=== PATIENT | female | born 1960 | race Caucasian/White ===

== ENCOUNTER → 2017-08-20 | Outpatient (CLI) | payer OTHER ==
--- NOTE | ~2017-08-20 | EXE ---
[facility] [place] [email or web address] [address] STRESS ECHOCARDIOGRAM Name: CRISTIAN HERCULES Room #: REG [facility]#: [id number] Admission: 08/20/17 Attend Phys: Gamaliel Alexander, Discharge: Date of : 56 Date of Service: 08/20/17 1431 Report #: [id number] THIS REPORT FOR: //name// APPROVED REPORT Exam: Stress Echocardiogram Indication: Family history of heart disease, Hyperlipidemia Patient Location: Echo lab Stress Nurse: Heidy Flores RN Status: routine Ht: 5 ft 8 in HR: 67 bpm BP: 136/93 mmHg Medical History Medications: No cardiac medications Allergies: No known drug allergies Cardiac Risk Factors: Hyperlipidemia Pretest Chest Pain Characteristics: No chest pain Procedure The patient underwent an Exercise Stress Test using the Edis Protocol. Blood pressure, heart rate, and EKG were monitored. An Echocardiogram was performed by overhead door technician in four stages in quad fashion. At peak stress, four selected images were obtained and placed side by side with resting images for comparison. Stress Test Details Stress Test: Exercise stress testing was performed using a Edis protocol. HR Resting HR: 67 bpm Max Heart Rate (APMHR): 161 bpm Max HR Achieved: 166 bpm Target HR (85% APMHR): 136 bpm % of APMHR: 103 Recovery HR: 91 bpm HR response to stress: Normal HR response to stress BP Resting BP: 136/93 mmHg Max BP: 176/98 mmHg Recovery BP: 128/80 mmHg ECG Clinical [facility] [address] [place] [address] STRESS ECHOCARDIOGRAM Name: CRISTIAN HERCULES Room #: [facility]#: [id number] Admission: 08/20/17 Attend Phys: Gamaliel Alexander, Discharge: Date of : 56 Date of Service: 08/20/17 143 Report #: [id number] Reason for Termination: Completed protocol, Maximal effort Exercise duration: 6 min 15 sec Highest Stage Achieved: Stage 3: 3.4 mph at 14% grade. Exercise capacity: 7.7 METs Pre-Stress Echo The resting Echocardiogram showed normal left ventricular contractility with an estimated Ejection Fraction of about 55-60%. Post-Stress Echo The stress Echocardiogram showed normal left ventricular contractility with an estimated Ejection Fraction of about 65-70%. Conclusion Clinical Response: Non-ischemic Exercise Capacity: Below Average Stress ECG Response: Non-ischemic Stress Echo Images: Non-ischemic Other Information Study Quality: Adequate <ELECTRONICALLY SIGNED> By: Gamaliel Alexander MD, [facility] 08/20/171430 30 30 Gamaliel Alexander MD, FACC /INF
== END ==
LOC: CV 08:28
DX: I10 Essential (primary) hypertension (principal); E78.5 Hyperlipidemia, unspecified; E78.00 Pure hypercholesterolemia, unspecified; Z82.49 Family history of ischemic heart disease and other diseases of the circulatory system